=== PATIENT | male | born 1955 | race African-American/Black ===

== ENCOUNTER 2016-10-04 12:16 | Emergency (ER) | payer SELFPAY ==
[~2016-10-04] VITALS: Ht 175.3 cm; Wt 89.5 kg
[2016-10-04] MEDS ORDERED: METFORMIN850 MG PO (12:28)
[2016-10-04] MEDS ORDERED: TRAMADOL HYDROC50 MG PO (12:36)
[2016-10-04] MEDS ORDERED: EC-NAPROSYN500 MG PO (12:36)
[2016-10-04] MEDS ORDERED: LOSARTAN POT50 MG PO (13:23)
[2016-10-04] MEDS ORDERED: METOPROL TAR25 MG PO (13:23)
[2016-10-04 14:19] VITALS: BP 213/109
== END 2016-10-04 14:37 | disposition home or self-care (01) | DRG 566 ==
LOC: ED 12:16
DX: M25.472 Effusion, left ankle (principal); E11.9 Type 2 diabetes mellitus without complications; M25.572 Pain in left ankle and joints of left foot; R50.9 Fever, unspecified; X58.XXXA Exposure to other specified factors, initial encounter; Y93.67 Activity, basketball; Y92.9 Unspecified place or not applicable; Z79.84 Long term (current) use of oral hypoglycemic drugs

== ENCOUNTER 2018-03-15 03:37 | Observation (INO) | payer BC ==
[~2018-03-15] VITALS: Ht 177.8 cm; Wt 93.2 kg
[~2018-03-15 03:37] MED LIST: EC-NAPROSYN500 MG PO; LOSARTAN POT50 MG PO; METFORMIN850 MG PO; METOPROL TAR25 MG PO; TRAMADOL HYDROC50 MG PO
[2018-03-15 04:07] LABS: HEMATOCRIT 32.9 % (39.0-50.0); HEMOGLOBIN 10.8 g/dl (14.0-18.0); IMMATURE GRANULOCYTES 0.3 % (0.0-5.0); MEAN CELL VOLUME 97.3 fL CALC (80.0-100.0); MEAN CORPUSCULAR HGB CONC 32.8 g/L CALC (32.0-36.0); NEUT# 3.51 thou/uL (1.82-7.42); RED BLOOD COUNT 3.38 mill/uL (4.70-6.10); RED CELL DISTRI WIDTH 12.3 % (11.5-15.5)
[2018-03-15] MEDS ORDERED: METFORMIN HCL1000 MG PO (04:26)
[2018-03-15] MEDS ORDERED: GLIPIZIDE10 M2 PO (04:27)
[2018-03-15] MEDS ORDERED: AVAPRO300 MG PO (04:28)
[2018-03-15] MEDS ORDERED: AMLODIPINE BESY10 MG PO (04:28)
[2018-03-15] MEDS ORDERED: SMZ-TMP DS1 TAB PO (04:30)
[2018-03-15] MEDS ORDERED: CLONIDINE HCL0.2 MG PO (04:30)
[2018-03-15 04:47] LABS: ACT PARTIAL THROMBO TIME 23.1 SECONDS (20.0-32.5); PROTHROMBIN TIME 10.5 SECONDS (9.0-12.5)
[2018-03-15 05:19] LABS: ALBUMIN 4.3 g/dL (3.2-5.0); BILIRUBIN, TOTAL 0.4 mg/dL (0.0-1.4); CREATININE 1.8 mg/dL (0.7-1.3); POTASSIUM 4.4 mmol/l (3.5-5.1); TOTAL PROTEIN 8.3 g/dL (6.3-8.2)
[2018-03-15 05:38] LABS: URINE BILIRUBIN - DIPSTICK NEGATIVE (NEGATIVE); URINE BLOOD DIPSTICK TRACE-INTACT (NEGATIVE); URINE COLOR YELLOW; URINE GLUCOSE - DIPSTICK NEGATIVE (NEGATIVE); URINE KETONE NEGATIVE (NEGATIVE); URINE LEUK ESTERASE NEGATIVE (NEGATIVE); URINE NITRITE - DIPSTICK NEGATIVE (Negative); URINE PROTEIN - DIPSTICK 30 mg/dL (NEG-TRACE); URINE UROBILINOGEN - DIPSTICK 0.2 E.U./dL (0.2)
[2018-03-15 05:55] LABS: URINE BACTERIA RARE hpf; URINE RBC 0-2 RBC/hpf (0-5); URINE WBC 0-2 WBC/hpf (0-5)
[2018-03-15 06:15] VITALS: BP 188/93
[2018-03-15 08:02] VITALS: BP 161/92
[2018-03-15 11:00] VITALS: BP 157/89
[2018-03-15 13:01] VITALS: BP 156/79
[2018-03-15 16:00] VITALS: BP 155/82
== END 2018-03-15 16:30 | disposition short-term general hospital (02) | DRG 313 ==
LOC: ED 03:37 → ED-I 04:00 → ED 04:00 → ED-I 05:28 → ED 05:51 → MS2 05:52
PROVIDERS: Emergency Medicine; ADMIT Internal Medicine; ATTEND Internal Medicine
DX: R07.9 Chest pain, unspecified (principal); I16.1 Hypertensive emergency; I10 Essential (primary) hypertension; R74.8 Abnormal levels of other serum enzymes; E11.9 Type 2 diabetes mellitus without complications; E78.5 Hyperlipidemia, unspecified; F41.9 Anxiety disorder, unspecified; N40.0 Benign prostatic hyperplasia without lower urinary tract symptoms
CPT/HCPCS: G0378; J1650

== ENCOUNTER 2019-12-21 08:09 | Emergency (ER) | payer OTHER ==
[~2019-12-21] VITALS: Ht 177.8 cm; Wt 90.0 kg
[~2019-12-21 08:09] MED LIST changes: +AMLODIPINE BESY10 MG PO; +AVAPRO300 MG PO; +CLONIDINE HCL0.2 MG PO; +GLIPIZIDE10 M2 PO; +METFORMIN HCL1000 MG PO; +SMZ-TMP DS1 TAB PO
[2019-12-21] MEDS ORDERED: TRULICITY1.5 MG/0.5 SC (08:43)
[2019-12-21] MEDS ORDERED: HYDROCO/APAP1 TA9 PO ×2 (10:04)
[2019-12-21] MEDS ORDERED: CYCLOBENZAPR5 MG PO ×2 (10:07)
[2019-12-21 10:13] VITALS: BP 184/91
== END 2019-12-21 10:15 | disposition home or self-care (01) | DRG 544 ==
LOC: ED 08:09
DX: M48.56XA Collapsed vertebra, not elsewhere classified, lumbar region, initial encounter for fracture (principal); E11.9 Type 2 diabetes mellitus without complications; I10 Essential (primary) hypertension; Z79.84 Long term (current) use of oral hypoglycemic drugs; Z79.899 Other long term (current) drug therapy

== ENCOUNTER 2019-12-26 13:04 | Emergency (ER) | payer OTHER ==
[~2019-12-26] VITALS: Ht 177.8 cm; Wt 85.0 kg
[~2019-12-26 13:04] MED LIST changes: +CYCLOBENZAPR5 MG PO; +HYDROCO/APAP1 TA9 PO; +TRULICITY1.5 MG/0.5 SC
[2019-12-26] MEDS ORDERED: CYCLOBENZAPRINE10 MG PO (13:49)
[2019-12-26] MEDS ORDERED: PERCOCET 10/31 COMBO PO (13:49)
[2019-12-26 14:05] VITALS: BP 187/88
[2019-12-26] MEDS ORDERED: AMLODIPINE BESYL5 MG PO (14:09)
[2019-12-26] MEDS ORDERED: ATORVASTATIN CA20 MG PO (14:09)
[2019-12-26] MEDS ORDERED: METOPROLOL SUCC50 MG PO (14:10)
== END 2019-12-26 14:05 | disposition home or self-care (01) | DRG 544 ==
LOC: ED 13:04
DX: M48.56XA Collapsed vertebra, not elsewhere classified, lumbar region, initial encounter for fracture (principal); E11.9 Type 2 diabetes mellitus without complications; I10 Essential (primary) hypertension; Z79.84 Long term (current) use of oral hypoglycemic drugs

== ENCOUNTER 2020-01-04 18:29 | Emergency (ER) | payer OTHER ==
[~2020-01-04] VITALS: Ht 177.8 cm; Wt 85.0 kg
[~2020-01-04 18:29] MED LIST changes: +AMLODIPINE BESYL5 MG PO; +ATORVASTATIN CA20 MG PO; +CYCLOBENZAPRINE10 MG PO; +METOPROLOL SUCC50 MG PO; +PERCOCET 10/31 COMBO PO
[2020-01-04 19:28] LABS: IMMATURE GRANULOCYTES 0.8 % (0.0-5.0); MEAN CELL VOLUME 95.3 fL CALC (80.0-100.0); MEAN CORPUSCULAR HGB 31.9 pG CALC (26.0-32.0); MEAN CORPUSCULAR HGB CONC 33.5 g/dL CAL (32.0-36.0); RED BLOOD COUNT 2.57 mill/uL (4.70-6.10); RED CELL DISTRI WIDTH 12.3 % (11.5-15.5)
[2020-01-04 19:29] LABS: HEMATOCRIT 24.5 % (39.0-50.0); HEMOGLOBIN 8.2 g/dl (14.0-18.0)
[2020-01-04 19:34] LABS: ACT PARTIAL THROMBO TIME 23.6 SECONDS (20.0-32.5); INTERNATIONAL NORMALIZED RATIO 1.2 RATIO (0.7-1.3); PROTHROMBIN TIME 11.9 SECONDS (9.0-12.5)
[2020-01-04] MEDS ORDERED: TRULICITY1.5 MG/0.5 (20:02)
[2020-01-04 20:13] LABS: ALBUMIN 3.6 g/dL (3.2-5.0); POTASSIUM 4.1 mmol/l (3.5-5.1); TOTAL PROTEIN 8.8 g/dL (6.3-8.2)
[2020-01-04 20:18] LABS: BILIRUBIN, TOTAL 0.8 mg/dL (0.0-1.4)
[2020-01-04 20:19] LABS: CREATININE 6.4 mg/dL (0.7-1.3)
[2020-01-04 20:43] VITALS: BP 187/92
== END 2020-01-04 20:43 | disposition short-term general hospital (02) | DRG 64 ==
LOC: ED 18:29
DX: I63.9 Cerebral infarction, unspecified (principal); I21.3 ST elevation (STEMI) myocardial infarction of unspecified site; N17.9 Acute kidney failure, unspecified; R47.81 Slurred speech; R26.81 Unsteadiness on feet; R47.1 Dysarthria and anarthria; R41.0 Disorientation, unspecified; R29.810 Facial weakness; R29.703 NIHSS score 3; E83.52 Hypercalcemia; I10 Essential (primary) hypertension; E11.9 Type 2 diabetes mellitus without complications; Z95.1 Presence of aortocoronary bypass graft; Z79.84 Long term (current) use of oral hypoglycemic drugs

== ENCOUNTER 2020-03-10 11:46 | Emergency (ER) | payer OTHER ==
[~2020-03-10] VITALS: Ht 177.8 cm; Wt 90.0 kg
[~2020-03-10 11:46] MED LIST changes: +TRULICITY1.5 MG/0.5
[2020-03-10] MEDS ORDERED: APRESOLINE25 MG/TAB PO (12:20)
[2020-03-10] MEDS ORDERED: CLONIDINE0.1 MG PO (12:20)
[2020-03-10] MEDS ORDERED: AMLODIPINE BESY10 MG PO (12:20)
[2020-03-10] MEDS ORDERED: ONDANSETRON4 MG PO (12:21)
[2020-03-10] MEDS ORDERED: DEXAMETHASON0.5 MG PO (12:22)
[2020-03-10] MEDS ORDERED: FAMCICLOVIR500 MG PO (12:28)
[2020-03-10] MEDS ORDERED: MIRALAX17 GM PO (12:28)
[2020-03-10 12:45] VITALS: BP 180/88
== END 2020-03-10 12:45 | disposition home or self-care (01) | DRG 596 ==
LOC: ED 11:46
DX: B02.9 Zoster without complications (principal); K59.00 Constipation, unspecified; C90.00 Multiple myeloma not having achieved remission; E11.9 Type 2 diabetes mellitus without complications; I10 Essential (primary) hypertension; G89.3 Neoplasm related pain (acute) (chronic); Z95.1 Presence of aortocoronary bypass graft; Z79.899 Other long term (current) drug therapy

== ENCOUNTER 2020-05-30 14:59 | Emergency (ER) | payer OTHER, MEDICARE ==
[~2020-05-30] VITALS: Ht 167.6 cm; Wt 65.9 kg
[~2020-05-30 14:59] MED LIST changes: +APRESOLINE25 MG/TAB PO; +CLONIDINE0.1 MG PO; +DEXAMETHASON0.5 MG PO; +FAMCICLOVIR500 MG PO; +MIRALAX17 GM PO; +ONDANSETRON4 MG PO
[2020-05-30 15:57] LABS: IMMATURE GRANULOCYTES 1.7 % (0.0-5.0); MEAN CELL VOLUME 93.2 fL CALC (80.0-100.0); MEAN CORPUSCULAR HGB 31.3 pG CALC (26.0-32.0); MEAN CORPUSCULAR HGB CONC 33.6 g/dL CAL (32.0-36.0); NEUT# 6.59 thou/uL (1.82-7.42); RED BLOOD COUNT 3.83 mill/uL (4.70-6.10); RED CELL DISTRI WIDTH 16.8 % (11.5-15.5)
[2020-05-30 16:00] LABS: HEMATOCRIT 35.7 % (39.0-50.0)
[2020-05-30] MEDS ORDERED: ZOVIRAX400 MG PO (16:11)
[2020-05-30] MEDS ORDERED: COMPAZINE10 MG PO (16:12)
[2020-05-30] MEDS ORDERED: ALLOPURINOL300 MG PO (16:12)
[2020-05-30] MEDS ORDERED: COZAAR25 MG PO (16:12)
[2020-05-30 16:18] LABS: BILIRUBIN, TOTAL 0.7 mg/dL (0.0-1.4); TOTAL PROTEIN 8.2 g/dL (6.3-8.2)
[2020-05-30 16:24] LABS: ALBUMIN 4.9 g/dL (3.2-5.0); CREATININE 7.7 mg/dL (0.7-1.3); POTASSIUM 3.1 mmol/l (3.5-5.1)
[2020-05-30 19:47] VITALS: BP 144/91
== END 2020-05-30 20:13 | disposition short-term general hospital (02) | DRG 683 ==
LOC: ED 14:59
PROVIDERS: Family Medicine
DX: N17.9 Acute kidney failure, unspecified (principal); C90.00 Multiple myeloma not having achieved remission; E11.22 Type 2 diabetes mellitus with diabetic chronic kidney disease; I12.9 Hypertensive chronic kidney disease with stage 1 through stage 4 chronic kidney disease, or unspecified chronic kidney disease; N18.9 Chronic kidney disease, unspecified; Z79.899 Other long term (current) drug therapy; Z20.822 Contact with and (suspected) exposure to COVID-19

== ENCOUNTER 2020-07-23 15:02 | Emergency (ER) | payer MEDICARE, OTHER ==
[~2020-07-23] VITALS: Ht 167.6 cm; Wt 64.0 kg
[~2020-07-23 15:02] MED LIST changes: +ALLOPURINOL300 MG PO; +COMPAZINE10 MG PO; +COZAAR25 MG PO; +ZOVIRAX400 MG PO
[2020-07-23] MEDS ORDERED: REVLIMID20 MG PO (17:35)
[2020-07-23 18:01] LABS: HEMATOCRIT 33.3 % (39.0-50.0); HEMOGLOBIN 10.2 g/dl (14.0-18.0); IMMATURE GRANULOCYTES 0.6 % (0.0-5.0); MEAN CORPUSCULAR HGB 30.8 pG CALC (26.0-32.0); MEAN CORPUSCULAR HGB CONC 30.6 g/dL CAL (32.0-36.0); NEUT# 3.64 thou/uL (1.82-7.42); RED BLOOD COUNT 3.31 mill/uL (4.70-6.10); RED CELL DISTRI WIDTH 14.9 % (11.5-15.5)
[2020-07-23 18:04] LABS: MEAN CELL VOLUME 100.6 fL CALC (80.0-100.0)
[2020-07-23 18:15] LABS: ALKALINE PHOSPHATASE 84 u/l (38-126); BILIRUBIN, TOTAL 0.8 mg/dL (0.0-1.4); CARBON DIOXIDE 24 mmol/l (22-30); SGOT/AST 25 u/l (19-48); SODIUM 137 mmol/l (137-146); TOTAL PROTEIN 7.3 g/dL (6.3-8.2)
[2020-07-23 18:16] LABS: ALBUMIN 3.5 g/dL (3.2-5.0); ANION GAP 11 (6-22 (CALC)); BUN 15 mg/dL (8-23); BUN/CREATININE RATIO 13 (12-20 (CALC)); CHLORIDE 106 mmol/l (95-108); CREATININE 1.2 mg/dL (0.7-1.3); GFR > 60 ML/MIN (>=60 (CALC)); GFR FOR AFR.AMER. > 60 ML/MIN (>=60 (CALC)); POTASSIUM 3.9 mmol/l (3.5-5.1)
[2020-07-23] MEDS ORDERED: COLCHICINE0.6 M2 PO (19:14)
[2020-07-23 19:48] VITALS: BP 136/73
== END 2020-07-23 19:48 | disposition home or self-care (01) ==
LOC: ED 15:02
PROVIDERS: Family Medicine
DX: M10.062 Idiopathic gout, left knee (principal); I10 Essential (primary) hypertension; E11.9 Type 2 diabetes mellitus without complications; I25.10 Atherosclerotic heart disease of native coronary artery without angina pectoris; C90.00 Multiple myeloma not having achieved remission; E78.00 Pure hypercholesterolemia, unspecified; Z95.1 Presence of aortocoronary bypass graft; Z86.73 Personal history of transient ischemic attack (TIA), and cerebral infarction without residual deficits; M79.605 Pain in left leg; M79.89 Other specified soft tissue disorders

== ENCOUNTER 2021-03-18 15:26 | Emergency (ER) | payer MEDICARE ==
[~2021-03-18] VITALS: Ht 167.6 cm; Wt 77.2 kg
[~2021-03-18 15:26] MED LIST changes: +COLCHICINE0.6 M2 PO; +REVLIMID20 MG PO
[2021-03-18 17:06] LABS: HEMATOCRIT 29.9 % (39.0-50.0); HEMOGLOBIN 9.8 g/dl (14.0-18.0); IMMATURE GRANULOCYTES 0.3 % (0.0-5.0); MEAN CORPUSCULAR HGB 33.4 pG CALC (26.0-32.0); MEAN CORPUSCULAR HGB CONC 32.8 g/dL CAL (32.0-36.0); NEUT# 3.48 thou/uL (1.82-7.42); RED BLOOD COUNT 2.93 mill/uL (4.70-6.10); RED CELL DISTRI WIDTH 15.1 % (11.5-15.5)
[2021-03-18 17:10] LABS: ALBUMIN 3.4 g/dL (3.2-5.0); ALKALINE PHOSPHATASE 79 u/l (38-126); ANION GAP 9 (6-22 (CALC)); BUN 16 mg/dL (8-23); BUN/CREATININE RATIO 12 (12-20 (CALC)); CARBON DIOXIDE 26 mmol/l (22-30); CHLORIDE 111 mmol/l (95-108); CREATININE 1.3 mg/dL (0.7-1.3); GFR 55 ML/MIN (>=60 (CALC)); GFR FOR AFR.AMER. > 60 ML/MIN (>=60 (CALC)); POTASSIUM 3.5 mmol/l (3.5-5.1); SGOT/AST 29 u/l (19-48); SODIUM 142 mmol/l (137-146); TOTAL PROTEIN 7.3 g/dL (6.3-8.2)
[2021-03-18 17:15] LABS: BILIRUBIN, TOTAL 0.4 mg/dL (0.0-1.4)
[2021-03-18 22:50] VITALS: BP 157/77
== END 2021-03-18 22:50 | disposition home or self-care (01) ==
LOC: ED 15:26
PROVIDERS: Family Medicine
DX: I10 Essential (primary) hypertension (principal); E11.9 Type 2 diabetes mellitus without complications; C90.00 Multiple myeloma not having achieved remission; Z86.73 Personal history of transient ischemic attack (TIA), and cerebral infarction without residual deficits; Z94.84 Stem cells transplant status

== ENCOUNTER 2022-11-05 17:42 | Emergency (ER) | payer MEDICARE ==
[~2022-11-05] VITALS: Ht 167.6 cm; Wt 80.0 kg
[2022-11-05] VITALS (13 sets, daily range): BP systolic 112–139; BP diastolic 64–79
[2022-11-05 18:43] LABS: URINE BLOOD DIPSTICK Moderate (NEGATIVE); URINE GLUCOSE - DIPSTICK 500 mg/dL (NEGATIVE); URINE KETONE Negative (NEGATIVE); URINE LEUK ESTERASE Negative (NEGATIVE); URINE NITRITE - DIPSTICK Negative (Negative); URINE PROTEIN - DIPSTICK >=300 mg/dL (NEG-TRACE); URINE SPECIFIC GRAVITY >=1.030
[2022-11-05 18:44] LABS: EOS% 1.2 % (0-8); HEMATOCRIT 31.4 % (39.0-50.0); HEMOGLOBIN 10.5 g/dl (14.0-18.0); IMMATURE GRANULOCYTES 1.9 % (0.0-5.0); LYMPH% 26.8 % (15-41); MEAN CORPUSCULAR HGB 31.8 pG CALC (26.0-32.0); MEAN CORPUSCULAR HGB CONC 33.4 g/dL CAL (32.0-36.0); NEUT# 1.8 thou/uL (1.82-7.42); NEUT% 56.1 % (42-76); RED BLOOD COUNT 3.3 mill/uL (4.70-6.10); RED CELL DISTRI WIDTH 17.7 % (11.5-15.5)
[2022-11-05 18:48] LABS: URINE COLOR Yellow
[2022-11-05 18:51] LABS: URINE SQUAMOUS EPITHELIAL CELL FEW EPI/hpf (0-FEW)
[2022-11-05 18:56] LABS: ALBUMIN 3.3 g/dL (3.2-5.0); BILIRUBIN, TOTAL 1.6 mg/dL (0.2-1.3); CREATININE 1.9 mg/dL (0.7-1.3); POTASSIUM 4.9 mmol/l (3.5-5.1); TOTAL PROTEIN 6.6 g/dL (6.3-8.2)
[2022-11-05 18:59] LABS: MEAN CELL VOLUME 95.2 fL CALC (80.0-100.0)
[2022-11-05] MEDS ORDERED: PAXLOVID 10 X 11 TAB PO (20:38)
== END 2022-11-05 21:20 | disposition home or self-care (01) ==
LOC: ED 17:42
PROVIDERS: Family Medicine
DX: U07.1 COVID-19 (principal); R11.2 Nausea with vomiting, unspecified; R50.9 Fever, unspecified; M79.10 Myalgia, unspecified site; I10 Essential (primary) hypertension; E11.9 Type 2 diabetes mellitus without complications; C90.00 Multiple myeloma not having achieved remission; R51.9 Headache, unspecified; Z86.73 Personal history of transient ischemic attack (TIA), and cerebral infarction without residual deficits; Z79.85 Long-term (current) use of injectable non-insulin antidiabetic drugs

== ENCOUNTER 2022-11-10 21:26 | Emergency (ER) | payer MEDICARE ==
[~2022-11-10] VITALS: Ht 167.6 cm; Wt 76.6 kg
[2022-11-10] VITALS (24 sets, daily range): BP systolic 64–93; BP diastolic 35–60
[~2022-11-10 21:26] MED LIST changes: +PAXLOVID 10 X 11 TAB PO
[2022-11-10 21:49] LABS: HEMATOCRIT 25.9 % (39.0-50.0); HEMOGLOBIN 8.6 g/dl (14.0-18.0); IMMATURE GRANULOCYTES 0.5 % (0.0-5.0); LYMPH% 14.7 % (15-41); MEAN CELL VOLUME 93.2 fL CALC (80.0-100.0); MEAN CORPUSCULAR HGB 30.9 pG CALC (26.0-32.0); MEAN CORPUSCULAR HGB CONC 33.2 g/dL CAL (32.0-36.0); MONO% 17.9 % (2-13); NEUT# 1.46 thou/uL (1.82-7.42); NEUT% 66.9 % (42-76); RED BLOOD COUNT 2.78 mill/uL (4.70-6.10); RED CELL DISTRI WIDTH 17.8 % (11.5-15.5)
[2022-11-10 22:08] LABS: ALBUMIN 3.2 g/dL (3.2-5.0); CHLORIDE 99 mmol/l (95-108); CPK 354 u/l (55-170); ETHYL ALCOHOL 0 mg/dl (0-30); INTERNATIONAL NORMALIZED RATIO 1.3 RATIO (0.7-1.3); MAGNESIUM 1.9 mg/dL (1.6-2.3); PROTHROMBIN TIME 12.5 SECONDS (9.0-12.5); SODIUM 132 mmol/l (137-146); TOTAL PROTEIN 6.9 g/dL (6.3-8.2)
[2022-11-10 22:19] LABS: ALKALINE PHOSPHATASE 162 u/l (38-126); ANION GAP 33 (6-22 (CALC)); BILIRUBIN, TOTAL 11.7 mg/dL (0.2-1.3); BUN/CREATININE RATIO 8 (12-20 (CALC)); GFR FOR AFR.AMER. 4 ML/MIN (>=60 (CALC)); GFR OTHER RACES 3 ML/MIN (>=60 (CALC)); LIPASE 2526 u/l (23-300); POTASSIUM 5.3 mmol/l (3.5-5.1); SGOT/AST 940 u/l (19-48)
[2022-11-10 22:20] LABS: BUN 121 mg/dL (8-23); CREATININE 14.5 mg/dL (0.7-1.3)
[2022-11-10 22:21] LABS: CARBON DIOXIDE < 5 mmol/l (22-30)
[2022-11-10 22:40] LABS: TSH, 3RD GENERATION 1.23 uIU/mL (0.47 - 4.68)
[2022-11-11] VITALS (30 sets, daily range): BP systolic 69–102; BP diastolic 39–60
== END 2022-11-11 03:10 | disposition short-term general hospital (02) ==
LOC: ED 21:26
PROVIDERS: Internal Medicine
PROC: 0T9B70Z Drainage of Bladder with Drainage Device, Via Natural or Artificial Opening (ICD-10-PCS; principal; 2022-11-10)
PROC: 05HN33Z Insertion of Infusion Device into Left Internal Jugular Vein, Percutaneous Approach (ICD-10-PCS; 2022-11-10)
PROC: 0BH17EZ Insertion of Endotracheal Airway into Trachea, Via Natural or Artificial Opening (ICD-10-PCS; 2022-11-10)
PROC: 5A1935Z Respiratory Ventilation, Less than 24 Consecutive Hours (ICD-10-PCS; 2022-11-10)
PROC: 3E043XZ Introduction of Vasopressor into Central Vein, Percutaneous Approach (ICD-10-PCS; 2022-11-10)
DX: A41.9 Sepsis, unspecified organism (principal); R65.20 Severe sepsis without septic shock; I21.4 Non-ST elevation (NSTEMI) myocardial infarction; N17.9 Acute kidney failure, unspecified; J96.00 Acute respiratory failure, unspecified whether with hypoxia or hypercapnia; I95.9 Hypotension, unspecified; E83.51 Hypocalcemia; R74.8 Abnormal levels of other serum enzymes; D69.6 Thrombocytopenia, unspecified; D64.9 Anemia, unspecified; E11.9 Type 2 diabetes mellitus without complications; I10 Essential (primary) hypertension; Z86.73 Personal history of transient ischemic attack (TIA), and cerebral infarction without residual deficits; Z95.1 Presence of aortocoronary bypass graft; Z94.84 Stem cells transplant status; Z85.79 Personal history of other malignant neoplasms of lymphoid, hematopoietic and related tissues
CPT/HCPCS: J1650; J3475